=== PATIENT | male | born 1960 ===

== ENCOUNTER 2025-03-18 14:21 | Outpatient (CLI) | payer BC | END 2025-03-18 14:22 | disposition home or self-care (01) | LOC: CT 14:21 | PROVIDERS: ATTEND Nurse Practitioner Adult Health | DX: C64.2 Malignant neoplasm of left kidney, except renal pelvis (principal); R91.8 Other nonspecific abnormal finding of lung field; K57.30 Diverticulosis of large intestine without perforation or abscess without bleeding; Z90.5 Acquired absence of kidney; Z90.89 Acquired absence of other organs | CPT/HCPCS: 71250; 74177 ==